=== PATIENT | female | born 1965 | race Caucasian/White ===

== ENCOUNTER → 2019-02-18 | Outpatient (CLI) | payer BC ==
--- NOTE | 2019-02-18 15:32 | REP ---
DIAGNOSTIC MAMMOGRAM LEFT BREAST WITH LEFT BREAST ULTRASOUND: Multiple spot compression views of the left breast performed and correlated with recent mammogram of 02/09/2019. Today's spot compression views confirm the presence of a well-circumscribed and smoothly marginated oval nodular opacity at about the 3-o'clock position of the left breast, somewhat posteriorly about 10 cm from the nipple. Real-time sonographic evaluation of this region of the left breast demonstrates a couple of focally dilated ducts likely accounting for the nodular opacity. No suspicious solid mass is seen in this region sonographically. IMPRESSION: ACR 2 benign. Well-circumscribed 6 mm oval nodular opacity in the 2-o'clock to 3-o'clock region of the left breast. By ultrasound, there are a few focally dilated ducts in this region. The finding is ACR 2 benign. Recommend followup mammogram in one year. BIRADS 2: BI-RADS/ACR category 2 mammogram. Benign Findings. This mammogram was interpreted with the aid of an FDA-approved computer-aided detection system. The patient letter being requested is M1 Electronically Signed by Guillaume Goldberg MD 02/18/2019 04:39 P
== END ==
LOC: M RAD 10:56
PROVIDERS: ATTEND Nurse Practitioner Women's Health
DX: N63.20 Unspecified lump in the left breast, unspecified quadrant (principal)

== ENCOUNTER → 2024-12-09 | Outpatient (REF) | payer OTHER ==
[2024-12-09 18:40] LABS: HEMATOCRIT 43.5 % (36.0-47.0); HEMOGLOBIN 14.7 g/dl (12.0-15.5); MEAN CORPUSCULAR HEMOGLOBIN 29.7 pg (27.0-33.0); MEAN CORPUSCULAR HGB CONC 33.8 g/dl (32.0-36.5); MEAN CORPUSCULAR VOLUME 87.9 fl (80.0-96.0); PLATELET COUNT, AUTOMATED 349 10^3/uL (150-450); RED BLOOD COUNT 4.95 10^6/uL (4.00-5.40); WHITE BLOOD COUNT 7.9 10^3/uL (4.0-10.0)
[2024-12-09 18:46] LABS: ALKALINE PHOSPHATASE 71 U/L (35-104); ALT/SGPT 42 U/L (7.0-40); AST/SGOT 27 U/L (<34); BILIRUBIN,TOTAL 0.7 MG/DL (0.3-1.2); BLOOD UREA NITROGEN 13 MG/DL (9-23); CALCIUM LEVEL 9.6 MG/DL (8.5-10.1); CARBON DIOXIDE LEVEL 28 MMOL/L (20-31); CHLORIDE LEVEL 100 MMOL/L (98-107); CHOLESTEROL LEVEL 162 MG/DL (<200); CREATININE FOR GFR 0.66 MG/DL (0.55-1.30); GLOMERULAR FILTRATION RATE > 60.0 (>51); GLUCOSE, FASTING 168 MG/DL (60-100); HDL CHOLESTEROL 37.6 MG/DL (>40); NON-HDL-C 124.4 MG/DL; POTASSIUM SERUM 4.1 MMOL/L (3.5-5.1); SODIUM LEVEL 140 MMOL/L (136-145); TOTAL PROTEIN 7.3 G/DL (5.7-8.2); TRIGLYCERIDES LEVEL 117 MG/DL (<150)
[2024-12-09 18:47] LABS: THYROID STIMULATING HORMONE 1.835 uIU/ML (0.55-4.78)
== END ==
LOC: M LABDRWCV 17:14 → M LAB REF 17:14
PROVIDERS: ATTEND Internal Medicine Cardiovascular Disease
DX: R06.02 Shortness of breath (principal); I10 Essential (primary) hypertension; E03.9 Hypothyroidism, unspecified; E78.00 Pure hypercholesterolemia, unspecified

== ENCOUNTER → 2024-12-30 | Outpatient (CLI) | payer OTHER | LOC: M CARPUL 10:33 | PROVIDERS: ATTEND Internal Medicine Cardiovascular Disease | DX: R06.02 Shortness of breath (principal); R94.31 Abnormal electrocardiogram [ECG] [EKG] ==

== ENCOUNTER → 2025-01-28 | Outpatient (CLI) | payer OTHER | LOC: M PLAIMG 08:22 | PROVIDERS: ATTEND Internal Medicine Cardiovascular Disease | DX: R06.02 Shortness of breath (principal); R60.0 Localized edema; I71.21 Aneurysm of the ascending aorta, without rupture; R93.1 Abnormal findings on diagnostic imaging of heart and coronary circulation ==

== ENCOUNTER → 2025-04-19 | Outpatient (CLI) | payer OTHER | LOC: M SLEEP HO 10:42 | PROVIDERS: ATTEND Physician Assistant | DX: G47.33 Obstructive sleep apnea (adult) (pediatric) (principal); R60.0 Localized edema ==